=== PATIENT | female | born 1935 | race Caucasian/White ===

== ENCOUNTER 2024-10-23 10:37 | Outpatient (CLI) | payer MEDICARE | END 2024-10-23 10:38 | disposition home or self-care (01) | LOC: CSHCT 10:37 | DX: R40.4 Transient alteration of awareness (principal) | CPT/HCPCS: 70450 ==

== ENCOUNTER 2025-01-06 14:44 | Outpatient (CLI) | payer MEDICARE | END 2025-01-06 14:45 | disposition home or self-care (01) | LOC: CSHCT 14:44 | PROVIDERS: ATTEND Family Medicine | DX: R10.20 Pelvic and perineal pain unspecified side (principal); M89.9 Disorder of bone, unspecified | CPT/HCPCS: 72190 ==